=== PATIENT | female | born 1955 ===

== ENCOUNTER 2022-09-30 10:13 | Outpatient (CLI) | payer MEDICARE, SELFPAY | END 2022-09-30 10:14 | disposition home or self-care (01) | PROVIDERS: PCP Family Medicine; Visit Provider Family Medicine | DX: I10 Essential (primary) hypertension (principal); E78.00 Pure hypercholesterolemia, unspecified; R25.2 Cramp and spasm | CPT/HCPCS: 80061; 80076; 83735 ==

== ENCOUNTER 2022-12-09 13:21 | Outpatient (CLI) | payer MEDICARE, SELFPAY ==
[2022-12-09 14:45] VITALS: BP 173/96; PULSE 95
--- NOTE | 2022-12-09 14:58 | PN_ITS ---
INDICATIONS Shortness of breath. ? DETAILS OF PROCEDURE EKG shows sinus rhythm, 94 beats per minutes, flipped T-waves in V1 without ST changes. ? Resting blood pressure 178/107. ? STRESS TEST The patient was exercised following standard Dustin protocol with treadmill echo for imaging. ?She was able to exercise to 4 minutes, 14 seconds, having to stop due to significant shortness of breath. ?Note, the patient does have underlying COPD. ?This is equivalent to 6 METs of exercise. ?She had a maximum heart rate of 142 beats per minute which was 109% of a calculated target of 130. ?She had a maximum blood pressure of 196/78 with a rate pressure product of 23,970. ?There was no evidence of any ischemia, no arrhythmia. ?The patient recovered after exercise from her shortness of breath. ? ASSESSMENT Subjectively negative, objectively negative EKG for ischemia on this EKG portion. ? PLAN Await echo images to couple this for a full formal diagnostic. ?The patient was discharged in stable condition. ?She will await diagnostic report with the echo images from her ordering physician. ? Dictated Date: 12/09/2022 14:58:45 CDT Internal Job ID: [id number]
== END 2022-12-09 13:22 | disposition home or self-care (01) ==
LOC: STRESS 19:43
PROVIDERS: PCP Family Medicine; Visit Provider Family Medicine
DX: R06.02 Shortness of breath (principal)
CPT/HCPCS: 93016; 93325; 93351

== ENCOUNTER 2023-02-20 11:48 | Outpatient (CLI) | payer MEDICARE, SELFPAY | END 2023-02-20 11:49 | disposition home or self-care (01) | LOC: NFLDREF 02-25 06:32 | PROVIDERS: PCP Family Medicine; Referring Provider Family Medicine; Visit Provider Family Medicine | DX: Z00.00 Encounter for general adult medical examination without abnormal findings (principal); I10 Essential (primary) hypertension; M85.80 Other specified disorders of bone density and structure, unspecified site; L57.0 Actinic keratosis; Z72.0 Tobacco use; J43.9 Emphysema, unspecified | CPT/HCPCS: 82306 ==

== ENCOUNTER 2023-12-01 12:10 | Outpatient (CLI) | payer MEDICARE, SELFPAY ==
--- OUTSIDE RECORDS SUMMARY | 2023-12-01 12:18 | XMS_ITS | Encounter Summary ---
Author Organization [facility] Address [address] [place] [address] Care Team Providers Care Children'S Choir Director Name Role Phone Lisa Soto PA-C Primary Care Provid er Lisa Soto PA-C Unavailable + [phone] Encounter Details Date Type Department Care Team ([facility] Contact Info) Description 11/04/2022 MyC Medical Advice [facility] [address] [place] [address] [address] [place] [address] Azul Lomeli Social History Tobacco Use Types Packs/Day Years Used Date Smoking Tobacco: Every Day Cigarettes 0.5 49.7 Started: 03/15/1974 Smokeless Tobacco: Never Comments:cutting down, maybe 5 cigarettes daily Alcohol Use Standard Drinks/Week Comments Yes 0 (1 standard drink = 0.6 oz pur e alcohol) 3 drinks a week AUDIT-C Answer Date Recorded Q1: How often do you have a drink containing alc ohol? 2-3 times a week 11/23/2019 Q2: How many drinks containi ng alcohol do you have on a typical day when you are drinking? 3 or 4 11/23/2019 Frequency of Binge Drinking Not on file 10/31 PHQ-2 Answer Date Recorded PHQ-2 Score 0 10/11/2021 Sex and Gender Information Value Date Recorded Sex Assigned at Not on file Gender Identity Not on file Sexual Orientation Not on file documented as of this encounter Plan of Treatment Not on file documented as of this encounter Visit Diagnoses Not on filedocumented in this encounter Care Teams Children'S Choir Director Relationship Specialty Start Date End Date Lisa Soto PA-C [address] [place] [address] PCP - General Family Medicine 08/06/20 Lisa Soto PA-C [address] [place] [address] Assigned PCP 08/12/20 documented as of this encounter
--- OUTSIDE RECORDS SUMMARY | 2023-12-01 12:18 | XMS_ITS | Clinical Summary ---
Author Organization [facility] Address [address] [place] [address] Care Team Providers Care Supervisor [employer] Name Role Phone Lisa Soto PA-C Primary Care Provid er Lisa Soto PA-C Unavailable [phone] Allergies Active Allergy Reactions Criticality Noted Date Comments Azithromycin Hives 10/03/2010 Penicillins Hives,Swelling 10/03/2010 Swelling eyes Verapamil Swelling Low 12/03/2021 Medications Medication Sig Dispensed Refills Start Date End Date Status multivitamin, therapeutic with minerals (MULTI-VITAMIN) TABS Take 1 tablet by mouth daily Active triamcinolone (KENALOG) 0.025 % cream Place into both ears daily as needed for irritation (on the external ear) Active Naproxen Sodium (ALEVE PO) Take 440 mg by mouth daily as needed for moderate pain Active VERAPAMIL HCL POIndications:Vascul ar Headache Take 80 mg by mouth Active azelastine (ASTELIN) 0.1 % nasal spray USE 2 SPRAYS IN EACH NOSTRIL TWICE A DAY 08/30/2019 Active nicotine (NICORETTE) 2 MG gumIndications:Tobac co abuse Place 1 each (2 mg) inside cheek as needed for smoking cessation 100 tablet 1 11/23/2019 Active ibuprofen (ADVIL/MOTRIN) 200 MG tablet Take 2 tablets (400 mg) by mouth every 8 hours as needed for pain 60 tablet 07/31/2020 Active hydrocortisone, Perianal, (HYDROCORTISONE) 2.5 % creamIndications:Ext ernal hemorrhoids Place rectally 2 times daily as needed for hemorrhoids 30 g 1 08/31/2020 Active SUMAtriptan (IMITREX STATDOSE) 6 MG/0.5ML pen injector kit INJECT 6 MG NEEDED FOR CLUSTER FOR HEADACHE (NO MORE THAN 1 SHOT PER DAY) 09/26/2020 Active SUMAtriptan (IMITREX) 20 MG/ACT nasal spray INSTILL ONE SPRAY INTO ONE NOSTRIL AT ONSET OF HEADACHE MAY REPEAT IN 2 HOURS. MAX TRIPTAN 2 USES A DAY, 3 DAYS A WEEK 9 USES A MONTH 01/02/2021 Active ipratropium (ATROVENT) 0.06 % nasal spray INSTILL TWO SPRAYS INTO EACH NOSTRIL TWO TIMES A DAY 09/18/2021 Active rosuvastatin (CRESTOR) 20 MG tabletIndications:Mi xed hyperlipidemia Take 1 tablet (20 mg) by mouth daily 90 tablet 3 10/11/2021 Active budesonide (ENTOCORT EC) 3 MG EC capsuleIndications:M icroscopic colitis, unspecified microscopic colitis type Take 1 capsule (3 mg) by mouth every morning 90 capsule 10/11/2021 Active albuterol (PROAIR HFA/PROVENTIL HFA/VENTOLIN HFA) 108 (90 Base) MCG/ACT inhalerIndications:O bstructive emphysema (H) Inhale 1-2 puffs into the lungs every 6 hours as needed for shortness of breath / dyspnea or wheezing 8.5 g 3 10/11/2021 Active budesonide-formotero l (SYMBICORT) 80-4.5 MCG/ACT InhalerIndications:O bstructive emphysema (H) Inhale 2 puffs into the lungs 2 times daily 30 g 3 10/11/2021 Active ipratropium - albuterol 0.5 mg/2.5 mg/3 mL (DUONEB) 0.5-2.5 (3) MG/3ML neb solutionIndications: Obstructive emphysema (H) Take 1 vial (3 mLs) by nebulization every 6 hours as needed for shortness of breath / dyspnea or wheezing 75 mL 1 10/11/2021 Active valACYclovir (VALTREX) 1000 mg tabletIndications:He rpes zoster without complication Take 1 tablet (1,000 mg) by mouth 3 times daily for 7 days 21 tablet 10/17/2021 Active gabapentin (NEURONTIN) 100 MG capsuleIndications:H erpes zoster without complication Take 1-2 capsules (100-200 mg) by mouth 3 times daily as needed for neuropathic pain 30 capsule 10/17/2021 Active hydrochlorothiazide (HYDRODIURIL) 12.5 MG tabletIndications:Es sential hypertension, benign Take 1 tablet (12.5 mg) by mouth daily 30 tablet 1 12/12/2021 Active losartan (COZAAR) 100 MG tabletIndications:Es sential hypertension, benign Take 1 tablet (100 mg) by mouth daily 90 tablet 12/12/2021 Active metoprolol succinate ER (TOPROL XL) 50 MG 24 hr tabletIndications:Es sential hypertension, benign Take 1 tablet (50 mg) by mouth At Bedtime 90 tablet 12/12/2021 Active omeprazole (PRILOSEC) [address] capsuleIndications:G astroesophageal reflux disease with esophagitis without hemorrhage Take 1 capsule (20 mg) by mouth daily 90 capsule 1 05/12/2022 Active Active Problems Problem Noted Date Diagnosed Date Mixed hyperlipidemia 10/13/2021 Dermatitis 10/11/2016 Overview: Overview: To the ears Microscopic colitis 10/11/2016 Overview: Overview: She is on oral Entcort. Due colonoscopy 2019 Obstructive emphysema 10/11/2016 Overview: Overview: On steroid inhalers and albuterol. Patient continues to smoke Essential hypertension, benign 10/27/2014 RAD (reactive airway disease) 10/27/2014 Overview: Overview: Gets recurrent bronchitis and is treated with steroids. Chest pain 09/12/2014 Vulvar mass 10/20/2010 Episodic cluster headache 07/03/2010 Overview: Overview: Sees neurology. On verapamil. Has used high dose O2 Depression with anxiety 11/16/2009 ACP (advance care planning) 11/16/2009 Tobacco abuse 11/16/2009 Overview: Overview: Using the patch. Was 1 ppd. Now 06/04-1/2 ppd Resolved Problems Problem Noted Date Diagnosed Date Resolved Date Health Prison 11/23/2019 11/16/2023 Cystocele 03/15/2015 11/08/2020 Immunizations Name Administration Dates Next Due COVID-19 MONOVALENT 12+ (Pfizer) 10/01/2020,08/30 Pneumococcal 23 valent 03/20/2021,01/17/2020 TD,PF 7+ (Tenivac) 11/04/1996 TDAP Vaccine (Adacel) 11/25/2014 Family History Medical History Relation Comments Coronary Artery Disease Brother 1 stents Myocardial Infarction Brother 1 62 Prostate Cancer Father Alzheimer Disease Maternal Grandmother Diabetes Mother Lymphoma Mother Breast Cancer No family hx of Relation Status Comments Brother 1 Brother 2 Daughter 1 Alive Daughter 2 Alive Father Maternal Grandfather Maternal Grandmother Mother Paternal Grandfather Paternal Grandmother Social History Tobacco Use Types Packs/Day Years Used Date Smoking Tobacco: Every Day Cigarettes 0.5 49.7 Started: 03/15/1974 Smokeless Tobacco: Never Tobacco Cessation:Ready to Q uit: No; Counseling Given: Yes Comments:cutting down, maybe 5 cigarettes daily Alcohol [...] Answer Date Recorded PHQ-2 Score 0 10/11/2021 Adolescent Education Answer Date Record ed Getting School Help Needed Not on file 03/16 Sex and Gender Information Value Date Recorded Sex Assigned at Not on file Gender Identity Not on file Sexual Orientation Not on file Last Filed Vital Signs Vital Sign Reading Time Taken Comments Blood Pressure 122/84 12/12/2021 10:01 AM CDT Pulse 72 12/12/2021 10:01 AM CDT Temperature 36.2 ??C (97.2 ??F) 12/12/2021 10:01 AM C DT Respiratory Rate 18 10/19/2020 5:45 PM CDT Oxygen Saturation 98% 12/12/2021 10:01 AM CDT Inhaled Oxygen Concentration - - Weight 68.5 kg (151 lb) 12/12/2021 10:01 AM CDT Height 157.5 cm (5' 2) 12/12/2021 10:01 AM CDT Body Mass Index 27.62 12/12/2021 10:01 AM CDT Plan of Treatment Health Maintenance Due Date Last Done Comments ANNUAL REVIEW OF HM ORDERS 1955 COPD ACTION PLAN 1955 [address] COLONOGRAPHY 1955 FIT 1955 FLEX SIG 1955 SPIROMETRY 1955 sDNA (Cologuard) 1955 LUNG CANCER SCREENING 2005 ZOSTER IMMUNIZATION (1 of 2) 2005 RSV VACCINE ( & 60+) (1 - 1-dose 60+ series) 2015 MEDICARE ANNUAL WELLNESS VISIT 2020 COLONOSCOPY 12/31/2020 01/01/2016, 0807/2015, 10/23/2009 Pneumococcal Vaccine: 65+ Years (2 of 2 - PCV) 03/20/2022 03/20/2021, 01/17/2020 MAMMO SCREENING 06/05/2022 06/05/2020, 07/03, 04/08/2005 FALL RISK ASSESSMENT 10/11/2022 10/11/2021, 08/08/19 21 LIPID 10/11/2022 10/11/2021, 10/19/2020 COVID-19 Vaccine ( season) 2023 10/01/2020, 09/10/2020 PHQ-2 (once per calendar year) 2023 10/11/2021, 08/07/2020, 11/23/2019 INFLUENZA VACCINE (Season Ended) 2024 09/27/2021 (Declined), 08/07/2020 (Declined) DTAP/TDAP/TD IMMUNIZATION (2 - Td or Tdap) 11/25/2024 11/25/2014, 11/04/1996 GLUCOSE 12/12/2024 12/12/2021, 09/29, 10/19/2020, Additional history exists COLORECTAL CANCER SCREENING 07/03/2025 Postponed from 1955 (Not Able to Schedule At This Time) ADVANCE CARE PLANNING 11/08/2025 11/08/2020 , 08/07/2020, 11/16/2009 DEXA 01/22/2037 01/22/2022 HEPATITIS C SCREENING Discontinued HPV IMMUNIZATION Aged Out No longer e ligible based on patient's age to complete this topic IPV IMMUNIZATION Aged Out No longer e ligible based on patient's age to complete this topic MENINGITIS IMMUNIZATION Aged Out No l onger eligible based on patient's age to complete this topic RSV MONOCLONAL ANTIBODY Aged Out No l onger eligible based on patient's age to complete this topic Medical Devices Implanted Type Area Zumba Instructor Device Identifier Shelf Expiration Date Model / Serial / Lot Mesh Sling Artisyn Sacrocolpopexy Arty Implanted:Qty: 1 on 03/15/2015 by Manoj Tineo MD at [facility] N/A: Pelvis [employer]- 10/29/2016 [id number] / / [id number] Mesh [address] Hernia 3.1x4.7 Oval Sm [id number] Implanted:Qty: 1 on 02/08/2016 by Gagan Crystal MD at [facility] N/A: Abdomen [employer]-DAVOL 10/26/2017 [id number] / / [id number] Procedures Procedure Name Priority Date/Time Associated Diagnosis Comments DX BONE DENSITY Routine 01/22/2022 Screening for osteoporosis BASIC METABOLIC PANEL (BFP) Routine 12/12/2021 Essential hypertension, benign LIPID PANEL (BFP) Routine 10/11/2021 1:3 3 PM CDT Mixed hyperlipidemia MA SCREENING BILATERAL W/ BERNARD Routine 06/05/2020 COLONOSCOPY Routine 01/01/2016 7:07 AM CDT from Last 3 Months or Most Recently Relevant to Health Maintenance Results * Dexa hip/pelvis/spine* (01/22/2022) Anatomical Region Laterality Modality Dexa Other Narrative 01/22/[id number] [place] [address], [address] [place] [address] [place] : 1955 Req Phys: Lisa Soto PA-C Patient name: Clinic: [facility] SHEKHAR ORELLANA Isidra Dept No: [id number] BONE DENSITY Exam Date: 01/22/2022 EXAM: BONE DENSITY LOCATION: [facility] [place] DATE/TIME: 01/22/2022 8:26 AM INDICATION: Postmenopause screening for osteoporosis. COMPARISON: 04/16/2009 TECHNIQUE: Dual-energy x-ray absorptiometry performed with routine technique. FINDINGS: Lumbar Spine: L1-L4: BMD: 0.885 g/cm2. T-score: -1.5. Z-score: 0.4 RIGHT Hip Total: BMD: 0.696 g/cm2. T-score: -2.0. Z-score: -0.7 RIGHT Hip Femoral neck: BMD: 0.592 g/cm2. T-score: -2.3. Z-score: -0.7 LEFT Hip Total: BMD: 0.652 g/cm2. T-score: -2.4. Z-score: -1.1 LEFT Hip Femoral neck: BMD: 0.587 g/cm2. T-score: -2.4. Z-score: -0.8 WHO Criteria: Normal: T score at or above -1 SD Osteopenia: T score between -1 and -2.5 SD Osteoporosis: T score at or below -2.5 SD COMPARISON: There has been a 8.0 % decrease in left hip BMD. FRAX Results: 10 year probability of major osteoporotic fracture is 14%, and of hip fracture is 4.2%, based on left femoral neck BMD. RECOMMENDATIONS: Consider treatment if major osteoporotic fracture score is greater than or equal to 20%. Consider treatment if hip fracture score is greater than or equal to 3%. IMPRESSION: Low bone density (OSTEOPENIA). T score meets the World Health Organization (WHO) criteria for low bone density (osteopenia) at one or more measured sites. The risk of osteoporotic fracture increased approximately two-fold for each SD decrease in T-score. Dictated By: JESSICA CURIEL M.D. Password protected electronic signature by: STALIN Trans: [email or web address] Date Of Trans: 01/22/2022 2:20:00PM Date report approved and signed by interpreting physician: 01/22/2022 2:26:00PM Page 1 of 1 Lisa Soto PA-C IMG DEXA ORD ERABLES * (ABNORMAL) Basic Metabolic Panel (BFP) (12/12/2021) Carbon Dioxide 29.3 20 - 32 mmol/L BFP INTERNAL Creatinine 0.89 0.60 - 1.30 mg/dL BFP INTERNAL Glucose 135(A) 60 - 99 mg/dL BFP INTERNAL Sodium 136.2 135 - 146 mmol/L BFP INTERNAL Potassium 4.73 3.5 - 5.3 mmol/L BFP INTERNAL Chloride 101.0 98 - 110 mmol/L BFP INTERNAL Urea Nitrogen 12 7 - 25 mg/dL BFP INTERNAL Calcium 9.7 8.6 - 10.3 mg/dL BFP INTERNAL BUN/Creatinine Ratio 13.5 6 - 22 BFP INTERNAL Blood 12/12/2021 Lisa Soto PA-C LAB - NON-BE [facility] BFP INTERNAL * Lipid Panel (BFP) (10/11/2021 1:33 PM CDT) Cholesterol 180 0 - 199 mg/dL BFP INTERNAL Triglycerides 126 0 - 149 mg/dL B[facility] INTERNAL HDL Cholesterol 56 40 - 150 mg/dL BFP INTERNAL LDL Cholesterol Direct 99 0 - 130 mg/dL BFP INTERNAL Cholesterol/HDL Ratio 3 0 - 5 BFP INTERNAL Blood 10/11/2021 1:33 PM CDT Lisa Soto PA-C LAB - NON-BE [facility] BFP INTERNAL * MA Screen Bilateral w/Bernard (06/05/2020) MAMMOGRAM Anatomical Region Laterality Modality Breast Bilateral Other Narrative 06/05/2020 [facility] Phone: [phone] * Fax: [phone] [address] Age: 64 Y Dept No.: [id number] SHEKHAR ORELLANA : 1955 Chart # Gender: F Req. Phys: Caleb Tovar MD MD Clinic MRN: Clinic: [facility] Acc#: [id number] Exam: MAMMOGRAM SCREENING BERNARD BILATERAL Exam Date: 06/05/2020 EXAM: MAMMOGRAM SCREENING BERNARD BILATERAL LOCATION: [facility] DATE/TIME: 06/05/2020 9:54 AM INDICATION: Asymptomatic. Screening Mammogram. COMPARISON: 07/31/14, 04/29/12 BREAST DENSITY: Scattered areas of fibroglandular density. FINDINGS: Tomosynthesis craniocaudal and mediolateral oblique views were obtained. There is no evidence for spiculated masses, architectural distortion, asymmetry or suspicious calcifications. IMPRESSION: No evidence of malignancy. Recommend routine annual screening mammography. When performed, computer-aided detection was used in the interpretation of this study. ACR 1: Negative. A lay language report of this examination will be mailed to the patient. Performed by: MAREN Transcribed By: JOSE on: 06/05/2020 10:18 AM RODENT CONTROL WORKER Finalized By: NATHANIEL VILLAVICENCIO M.D. on: 06/05/2020 10:18 AM RODENT CONTROL WORKER Dictated By: NATHANIEL VILLAVICENCIO M.D. Signed by: SGT Page 1 of 1 Caleb Tovar MD IMG MAMMOGRAPHY OR DERABLES * COLONOSCOPY (01/01/2016 7:07 AM CDT) Pathologist [facility] COLONOSCOPY [facility] Patient Name: Shekhar Orellana ?Procedure Date: 01/01/2016 7:07 AM ? Date of : 1955 ?Admit Type: Outpatient Age: 60 ? Gender: Female Attending MD: Cristin Ibarra MD ? Instrument Name: 134 Procedure: ?Colonoscopy Indications: ?Screening for colorectal malignant neoplasm, ?Incidental - Chronic diarrhea Providers: ?Cristin Ibarra MD, Huma Whalen RN (Nurse) Referring MD: ? Caleb Tovar MD Medicines: ?Fentanyl 100 micrograms IV, Midazolam 3 mg IV, ?Glucagon 0.5 mg IV ?IT:17m, WDT: 17m Complications: ?No immediate complications. Procedure: ?Pre-Anesthesia Assessment: ?- Prior to the procedure, a History and Physical ?was performed, and patient medications and ?allergies were reviewed. The patient is competent. ?The risks and benefits of the procedure and the ?sedation options and risks were discussed with the ?patient. All questions were answered and informed ?consent was obtained. Patient identification and ?proposed procedure were verified by the physician ?and the nurse in the endoscopy suite. Mental Status ?Examination: alert and oriented. Airway ?Examination: normal oropharyngeal airway and neck ?mobility. Respiratory Examination: clear to ?auscultation. CV Examination: normal. Prophylactic ?Antibiotics: The patient does not require ?prophylactic antibiotics. Prior Anticoagulants: The ?patient has taken no previous anticoagulant or ?antiplatelet agents. ASA Grade Assessment: II - A ?patient with mild systemic disease. After reviewing ?the risks and benefits, the patient was deemed in ?satisfactory condition to undergo the procedure. ?The anesthesia plan was to use moderate sedation / ?analgesia (conscious sedation). Immediately prior ?to administration of medications, the patient was ?re-assessed for adequacy to receive sedatives. The ?heart rate, respiratory rate, oxygen saturations, ?blood pressure, adequacy of pulmonary ventilation, ?and response to care were monitored throughout the ?procedure. The physical status of the patient was ?re-assessed after the procedure. ?After obtaining informed consent, the colonoscope ?was passed under direct vision. Throughout the ?procedure, the patient's blood pressure, pulse, and ?oxygen saturations were monitored continuously. The ?[id number] was introduced through the anus and ?advanced to the cecum, identified by the ?appendiceal orifice, ileocecal valve and palpation. ?The colonoscopy was somewhat difficult due to a ?tortuous colon. Successful completion of the ?procedure was aided by increasing the dose of ?sedation medication and using manual pressure. The ?patient tolerated the procedure well. The quality ?of the bowel preparation was excellent. ? Findings: ? The perianal and digital rectal examinations were normal. Pertinent ? negatives include normal sphincter tone and no palpable rectal lesions. ? A sessile polyp was found in the cecum. The polyp was 2 mm in size. The ? polyp was removed with a cold biopsy forceps. Resection and retrieval ? were complete. Estimated blood loss was minimal. ? Normal mucosa was found in the entire colon. Biopsies were taken with a ? cold forceps from the right colon and left colon for evaluation of ? microscopic colitis. Estimated blood loss was minimal. ? The retroflexed view of the distal rectum and anal verge was normal and ? showed no anal or rectal abnormalities. ? The retroflexed view of the distal rectum and anal verge was normal and ? showed no anal or rectal abnormalities. ? Impression: ? - One 2 mm polyp in the cecum. Resected and ?retrieved. ?- Normal mucosa in the entire examined colon. ?Biopsied. ?- The distal rectum and anal verge are normal on ?retroflexion view. ?- The distal rectum and anal verge are normal on ?retroflexion view. Recommendation: ? - Use fiber, for example Citrucel, Fibercon, Konsyl ?or Metamucil. ?- Await pathology results. ?- Repeat colonoscopy in 5-10 years for surveillance ?based on pathology results. ? Procedure Code(s): ? --- Professional --- ? 59998, Colonoscopy, flexible, proximal to splenic flexure; with biopsy, ? single or multiple Diagnosis Code(s): ? --- Professional --- ? D12.0, Benign neoplasm of cecum ? Z12.11, Encounter for screening for malignant neoplasm of colon CPT copyright 2013 [employer]. All rights reserved. The codes documented in this report are preliminary and upon senior materials planner review may be revised to meet current compliance requirements. Cristin Ibarra MD 01/01/2016 8:31 AM Number of Addenda: 0 Note Initiated On: 01/01/2016 7:07 AM MRN: ?[id number] Procedure Date: ? 01/01/2016 7:07:47 AM Scope Withdrawal Time: 0 hours 12 minutes 25 seconds Total Procedure Duration: 0 hours 28 minutes 54 seconds Estimated Blood Loss: ? Scope In: 7:42:37 AM Scope Out: 8:11:31 AM RADIOLOGY RESULTS 01/01/2016 7:07 AM CDT Caleb Tovar MD PROCEDURES RADIOLOGY RESULTS from Last 3 Months or Most Recently Relevant to Health Maintenance Advance Directives For more information, please contact: [phone] * Full Code (Latest Code Status on File) Date Activated Date Inactivated Comments 03/15/2015 4:21 PM 03/16/2015 12:38 PM * Full Code Date Activated Date Inactivated Comments 09/12/2014 1:57 AM 09/12/2014 1:45 PM Care Teams Supervisor [employer] Relationship Specialty Start Date End Date Lisa Soto PA-C [address] [place] [address] PCP - General Family Medicine 08/06/20 Lisa Soto PA-C [address], [facility] [address] [place] [address] Assigned PCP 08/12/20
--- OUTSIDE RECORDS SUMMARY | 2023-12-01 12:18 | XMS_ITS | Referral Summary ---
Author Organization [facility] Address [address] [place] [address] Care Team Providers Care Core Setter Name Role Phone Lisa Soto PA-C Primary Care Provid er Lisa Soto PA-C Unavailable +1- [phone] Allergies Active Allergy Reactions Criticality Noted Date [...] 7+ (Tenivac) 11/04/1996 TDAP Vaccine (Adacel) 11/25/2014 Social History Tobacco Use Types Packs/Day Years [...] 12/12/2021 10:01 AM CDT Plan of Treatment Not on file Medical Devices Implanted Type Area Varnishing Machine Operator Device Identifier Shelf Expiration Date Model / Serial / Lot Mesh Sling Artisyn Sacrocolpopexy Arty Implanted:Qty: 1 on 03/15/2015 by Manoj Tineo MD at [facility] N/A: Pelvis [employer]- 10/29/2016 [id number] / / [id number] Mesh [address] Hernia 3.1x4.7 Oval Sm [id number] Implanted:Qty: 1 on 02/08/2016 by Gagan Crystal MD at [facility] N/A: Abdomen [employer]-DAVOL 10/26/2017 [id number] / / [id number] Procedures Procedure Name Priority Date/Time Associated Diagnosis [...] Region Laterality Modality Dexa Other Narrative 01/22/[address] [place] [address], [address] [place] [address] [place] : 1955 Req Phys: Lisa Soto PA-C Patient name: Clinic: [facility] SHEKHAR ORELLANA Dept No: [id number] BONE DENSITY Exam Date: 01/22/2022 EXAM: BONE DENSITY LOCATION: [facility] [place] DATE/TIME: 01/22/2022 8:26 AM INDICATION: Postmenopause screening [...] Password protected electronic signature by: STALIN Trans: SMK Date Of Trans: 01/22/2022 2:20:00PM Date report [...] CDT Lisa Soto PA-C LAB - NON-BE [facility] BLOOD LABS Performing Organization Address City/[facility]/ZIP Co de Phone Number BFP INTERNAL * MA Screen Bilateral w/Bernard (06/05/2020) MAMMOGRAM Anatomical Region Laterality Modality Breast Bilateral Other Narrative 06/05/2020 [facility] Phone: [phone] * Fax: [phone] [address] [place] [address] Age: 64 Y Dept No.: [id number] SHEKHAR ORELLANA : 1955 Chart # Gender: F Req. Phys: Caleb Tovar MD MD Clinic MRN: Clinic: [facility] Acc#: [id number] Exam: MAMMOGRAM SCREENING BERNARD BILATERAL Exam Date: 06/05/2020 EXAM: MAMMOGRAM SCREENING BERNARD BILATERAL LOCATION: [facility] DATE/TIME: 06/05/2020 9:54 AM INDICATION: [...] Transcribed By: JOSE on: 06/05/2020 10:18 AM AUTHORIZER Finalized By: NATHANIEL VILLAVICENCIO M.D. on: 06/05/2020 10:18 AM AUTHORIZER Dictated By: NATHANIEL VILLAVICENCIO M.D. Signed by: SGCordell Page 1 of 1 Caleb Tovar MD IMG MAMMOGRAPHY OR DERABLES * COLONOSCOPY (01/01/2016 7:07 AM CDT) COLONOSCOPY [facility] Patient Name: Shekhar Orellana ?Procedure Date: 01/01/2016 [...] and ?oxygen saturations were monitored continuously. The ?[id number] was introduced through the anus and ?advanced [...] Procedure Code(s): ? --- Professional --- ? 97241, Colonoscopy, flexible, proximal to splenic flexure; with biopsy, ? single or multiple Diagnosis Code(s): ? --- Professional --- ? D12.0, Benign neoplasm of cecum ? Z12.11, Encounter for screening for malignant neoplasm of colon CPT copyright 2013 [employer]. All rights reserved. The codes documented in this report are preliminary and upon operational communication chief review may be revised to meet current compliance requirements. Cristin Ibarra MD 01/01/2016 8:31 AM Number of Addenda: 0 Note Initiated On: 01/01/2016 7:07 AM MRN: ?[id number] Procedure Date: ? 01/01/2016 7:07:47 AM Scope [...] Advance Directives For more information, please contact: [phone] * Full Code (Latest Code Status on File) Date Activated Date Inactivated Comments 03/15/2015 4:21 PM 03/16/2015 12:38 PM * Full Code Date Activated Date Inactivated Comments 09/12/2014 1:57 AM 09/12/2014 1:45 PM Care Teams Core Setter Relationship Specialty Start Date End Date Lisa Soto PA-C [address], [address] [place] [address] PCP - General Family Medicine 08/06/20 Lisa Soto PA-C [address], [address] [place] [address] Assigned PCP 08/12/20
--- OUTSIDE RECORDS SUMMARY | 2023-12-01 12:18 | XMS_ITS | Encounter Summary ---
Author Organization [facility] Address [address] [place] [address] Care Team Providers Care Batch Tank Controller Name Role Phone Lisa Soto PA-C Primary Care Provid er Lisa Soto PA-C Unavailable [phone]- [phone] Encounter Details Date Type Department Care Team (Late Contact Info) Description 10/19/2020 Documentation Only [facility] Emergency Dept [address] [place] [address] Unknown, Provider Social History Tobacco Use Types Packs/Day Years Used Date Smoking Tobacco: Every Day Cigarettes 0.5 49.7 Started: 03/15/1974 Smokeless Tobacco: Never Alcohol Use Standard Drinks/Week Comments Yes 0 [...] PHQ-2 Answer Date Recorded PHQ-2 Score 0 11/23/2019 Sex and Gender Information Value Date Recorded Sex Assigned at Not on file Gender Identity Not on file Sexual Orientation Not on file COVID-19 Exposure Response Date Recorded In the last month, have you been in contact with someone who was confirmed or suspected to have Coronavirus / COVID-19? No / Unsure 10/19/2020 9:37 AM CDT documented as of this encounter Plan of Treatment Not on file documented as of this encounter Visit Diagnoses Not on filedocumented in this encounter Care Teams Batch Tank Controller Relationship Specialty Start Date End Date Lisa Soot PA-C [address], [address] [address] PCP - General Family Medicine 08/06/20 Lisa Soto PA-C [address], [address] [address] Assigned PCP 08/12/20 documented as of this encounter
--- OUTSIDE RECORDS SUMMARY | 2023-12-01 12:18 | XMS_ITS | Encounter Summary ---
Author Organization [facility] Address [address] [place] [address] Care Team Providers Care Freight Associate Name Role Phone Caleb Tovar MD Primary Care Provider Romelia vailaCaleb Downing MD Unavailable Unavailab le Lisa Soto PA-C Primary Care Provid er Lisa Soto PA-C Unavailable +- [phone] Encounter Details Date Type Department Care Team (Late st Contact Info) Description 03/21/2020 Orders Only [facility] [address] [address] [place] [address] Johanna Velásquez MA Supraclavicular lymphadenopathy Social History Tobacco Use Types Packs/Day Years Used Date Smoking Tobacco: Every Day Cigarettes 1 49.7 Started: 03/15/1974 Smokeless Tobacco: Never Alcohol [...] have Coronavirus / COVID-19? No / Unsure 03/14/2020 8:52 AM CDT documented as of this encounter Plan of Treatment Not on file documented as of this encounter Procedures Procedure Name Priority Date/Time Associated Diagnosis Comments US HEAD NECK SOFT TISSUE Routine 03/21/2020 Supraclavicular lymphadenopathy documented in this encounter Results * US Head Neck Soft Tissue (03/21/2020) Anatomical Region Laterality Modality Head Other Narrative 03/21/2020 [facility] Phone: [phone] * Fax: [phone] [address] [place] [address] Age: 64 Y Dept No.: [id number] ALINA ORELLANA : 1955 Chart # Gender: F Req. Phys: Caleb Tovar MD MD Clinic MRN: Clinic: [facility] Acc#: [id number] Exam: US NECK SOFT TISSUE Exam Date: 03/21/2020 EXAM: US NECK SOFT TISSUE [place] [facility] [place]TIME: 03/21/2020 9:28 AM INDICATION: Left supraclavicular fullness COMPARISON: None. Findings: Targeted ultrasound of the left supraclavicular region and comparison images of the right supraclavicular region were obtained. Underlying the area of fullness, there are no masses or enlarged lymph nodes. No asymmetric soft tissue thickening. Impression: No left supraclavicular mass or lymphadenopathy. No findings to account for fullness in the left supraclavicular region. Performed by: ONESIMO Transcribed By: JOSE on: 03/21/2020 9:42 AM CDT Finalized By: MARIELY MENCHACA M.D. on: 03/21/2020 9:42 AM CDT Dictated By: MARIELY MENCHACA M.D. Signed by: Page 1 of 1 Caleb Tovar MD IMG US ORDERABLES documented in this encounter Visit Diagnoses Diagnosis Supraclavicular lymphadenopathy Enlargement of lymph nodes documented in this encounter Care Teams Freight Associate Relationship Specialty Start Date End Date Caleb Tovar MD PCP - General Family Practice 02/16/14 08/05/20 Lisa Soto PA-C [address] , [address] [address] PCP - General Family Medicine 08/06/20 Caleb Tovar MD I[place] IN [place] 09/28/2020 Assigned PCP 11/04/19 Lisa Soto PA-C [address] [address] Assigned PCP 08/12/20 documented as of this encounter
--- OUTSIDE RECORDS SUMMARY | 2023-12-01 12:18 | XMS_ITS | Encounter Summary ---
Author Organization [facility] Address [address] [place] [address] Care Team Providers Care Worksite Wellness Practitioner Name Role Phone Lisa Soto PA-C Primary Care Provid er Lisa Soto PA-C Unavailable + [phone] Encounter Details Date Type Department Care Team ([facility] Contact Info) Description 07/18/2021 MyC Medical Advice [facility] [address] [place] [address] [address] [place] [address] Catarina Davis CMA Social History Tobacco Use Types Packs/Day Years [...] on filedocumented in this encounter Care Teams Worksite Wellness Practitioner Relationship Specialty Start Date End Date Lisa Soto PA-C [address], [address] [place] [address] PCP - General Family Medicine 08/06/20 Lisa Soto PA-C [address], [address] [place] [address] Assigned PCP 08/12/20 documented as of this encounter
--- OUTSIDE RECORDS SUMMARY | 2023-12-01 12:19 | XMS_ITS | Clinical Summary ---
Author Organization [facility] Address [place], [place] [address] Care Team Providers Care Silver Cleaner Name Role Phone Isha Bueno MD Primary Care Provider + Allergies Active Allergy Reactions Criticality Noted Date Comments Erythromycin 11/09/2009 Penicillins *Unknown 11/09/2009 25 years ago, thinks can tolerate now Medications Medication Sig Dispensed Refills Start Date End Date Status multivitamin (MVI) tablet Take 1 tablet by mouth once daily. Active Fiber Cap Take by mouth. Active verapamil (CALAN) 80 mg tablet Take 80 mg by mouth. 3 11/09/2015 Active PROCTOSOL HC 2.5 % rectal creamIndications:He morrhoids, unspecified hemorrhoid type APPLY TOPICALLY TO AFFECTED AREA(S) 3 TIMES DAILY. 1 Tube 2 03/24/2016 Active nicotine 14 mg/24 hr (NICODERM; HABITROL) 14 mg/24 hr patchIndications:To bacco abuse Apply 1 Patch on dry, clean, hairless skin once daily. 28 Patch 08/20/2016 Active metoprolol succinate (TOPROL XL) 50 mg sustained-release tabletIndications:E ssential hypertension TAKE 1 and 1/2 TABLET BY MOUTH ONCE DAILY 135 tablet 2 08/20/2016 Active budesonide (ENTOCORT EC) 3 mg capsuleIndications: Microscopic colitis, unspecified microscopic colitis type Take 1 capsule by mouth every day 90 capsule 1 10/08/2016 Active fluocinolone 0.01% TOPICAL (SYNALAR) 0.01 % external solutionIndications :Dermatitis of ear canal, bilateral Apply topically to affected area(s) 2 times daily. 1 Bottle 10/08/2016 Active albuterol HFA (VENTOLIN HFA) 90 mcg/actuation inhalerIndications: Obstructive emphysema (HC) Inhale 1-2 Puffs by mouth every 4 hours while awake. 1 Inhaler 11 10/08/2016 Active SYMBICORT 80-4.5 mcg/actuation (80-4.5 mcg each actuation) inhalerIndications: Obstructive emphysema (HC) INHALE 2 PUFFS BY MOUTH 2 TIMES DAILY. 10.2 Inhaler 03/20/2017 Active predniSONE (DELTASONE) 20 mg tablet Take 2 tablets by mouth once daily for 5 days then take 1 tablet daily for 5 days. 20 tablet 04/22/2017 Active azithromycin (ZITHROMAX) 500 mg tablet Take 1 tablet by mouth once daily. 7 tablet 04/22/2017 Active nystatin (MYCOSTATIN) 100,000 unit/mL suspension Swab 1 mL in each cheek 4 times daily for 7 to 10 days until gone. 100 mL 04/22/2017 Active codeine-guaiFENesin (CHERATUSSIN AC) 10-100 mg/5 mL liquid Take 5-10 mL by mouth every 6 hours if needed for cough. 120 mL 04/22/2017 Active losartan (COZAAR) 100 mg tabletIndications:E ssential hypertension TAKE 1 TABLET BY MOUTH ONCE DAILY. 30 tablet 11/02/2017 Active ranitidine (ZANTAC) 150 mg tabletIndications:C hronic GERD TAKE 1 TABLET BY MOUTH 2 TIMES DAILY. 180 tablet 12/16/2017 Active codeine-guaiFENesin (ROBITUSSIN AC) 10-100 mg/5 mL liquidIndications:P neumonia of both lower lobes due to infectious organism Take 10 mL by mouth every 4 hours if needed for Cough. Max dose 60 mL per 24 hrs. 120 mL 08/21/2018 Active albuterol HFA 90 mcg/actuation inhalerIndications: Pneumonia of both lower lobes due to infectious organism Inhale 1-2 Puffs by mouth every 4 hours if needed. 1 Inhaler 08/21/2018 Active albuterol-ipratropi um (DUONEB) (2.5-0.5 mg) in 3 mL NEBULIZATION solutionIndications :Pneumonia of both lower lobes due to infectious organism Inhale 3 mL via a nebulizer every 6 hours if needed. 120 Vial 08/21/2018 Active NebulizerIndication s:Pneumonia of both lower lobes due to infectious organism Nebulizer, disposable neb kit x 4, reuseable neb kit x 1, mask x 1, filters x 1. Frequency of use: daily; Medication: duoneb Length of need 99 months 1 Device 08/21/2018 Active Proctozone-HC 2.5 % rectal creamIndications:He morrhoids, external APPLY TOPICALLY TO AFFECTED AREA THREE TIMES A DAY 28 g 2 08/30/2020 Active Active Problems Problem Noted Date Diagnosed Date Hypoxia 08/21/2018 Dermatitis 10/11/2016 Overview: To the ears Microscopic colitis 10/11/2016 Overview: She is on oral Entcort. Due colonoscopy 2019 Obstructive emphysema 10/11/2016 Overview: On steroid inhalers and albuterol. Patient continues to smoke HTN (hypertension) 10/27/2014 RAD (reactive airway disease) 10/27/2014 Overview: Gets recurrent bronchitis and is treated with steroids. Episodic cluster headache 07/03/2010 Overview: Sees neurology. On verapamil. Has used high dose O2 Tobacco abuse 11/16/2009 Overview: Using the patch. Was 1 ppd. Now 06/04-1/2 ppd Depression with anxiety 11/16/2009 Routine health maintenance 11/16/2009 Immunizations Name Administration Dates Next Due Td (Age >=7 Years) 11/04/1996 Tdap 07/30/2014 Family History Medical History Relation Name Comments Heart Disease Brother [place] @ 57 Cancer-colon Father Cancer-prostate Father Diabetes Maternal Grandfather Diabetes Maternal Grandmother Cancer Mother lymphoma Diabetes Mother Hypertension Mother Cancer-breast No Family History Cancer-ovarian No Family History Relation Name Status Comments Brother Father Maternal Grandfather Maternal Grandmother Mother Social History Tobacco Use Types Packs/Day Years Used Date Smoking Tobacco: Every Day Cigarettes Smokeless Tobacco: Never Tobacco Cessation:Ready to Q uit: Yes; Counseling Given: Yes Comments:working on quitting Alcohol Use Standard Drinks/Week Comments Yes 7 (1 standard drink = 0.6 oz pur e alcohol) Occ. Sex and Gender Information Value Date Recorded Sex Assigned at Not on file Gender Identity Not on file Sexual Orientation Not on file Obstetrics History Last Filed Vital Signs Vital Sign Reading Time Taken Comments Blood Pressure 128/78 08/21/2018 1:28 PM CDT Pulse 122 08/21/2018 1:28 PM CDT Temperature 37.8 ??C (100 ??F) 08/21/2018 1: 28 PM CDT Respiratory Rate 16 08/21/2018 1:28 PM CDT Oxygen Saturation 93% 08/21/2018 1:2 8 PM CDT patient is smoker Inhaled Oxygen Concentration - - Weight 57.2 kg (126 lb) 10/08/2016 9:37 AM CDT Height 163 cm (5' 4.17) 08/20/2016 9:3 9 AM CDT Body Mass Index 21.51 08/20/2016 9:39 AM CDT Plan of Treatment Health Maintenance Due Date Last Done Comments Hepatitis C screening for ag e 18-79 1973 Zoster (shingles) series for age 50+ (1 of 2) 2005 Mammogram for age 45-75 08/01/2015 08/01/19 15, 04/29/2012, 04/16/2009, Additional history exists Depression screening for age 12+ 11/20/2016 11/21/19 16 BMI (ht and wt on same day) for age 18+ 08/20/2017 08/20/2016, 02/12/2016, 01/30/2016, Additional history exists DEXA/DXA scan for age 65+ 2020 Pneumococcal series for age 65+ (1 of 1 - PCV) 2020 Lipids for age 45-75 10/08/2021 10/08/2016, 11/21/2015, 05/14/2010, Additional history exists COVID-19 vaccine series (2022- season) 2023 10/01/2020, 09/10/2020 Influenza for age 65+ 01/31/2024 Tetanus booster 07/30/2024 07/30/2014, 05/01 (Declined), 11/04/1996 Colonoscopy through age 75 12/31/2025 01/01/2016, Tdap Completed 07/30/2014 Procedures Procedure Name Priority Date/Time Associated Diagnosis Comments LIPID PANEL W REFLEX MEASURED LDL Routine 10/08/2016 10:25 AM CDT Essential hypertension COLONOSCOPY SCREENING Routine 01/01/2016 12:00 AM CDT Routine adult health maintenance XR MAMMO BILAT SCREEN FFDM (IA) Routine 07/31/2014 9:14 AM CLIENT STRATEGIST Other screening mammogram from Last 3 Months or Most Recently Relevant to Health Maintenance Results * (ABNORMAL) LIPID PANEL W REFLEX MEASURED LDL (10/08/2016 10:25 AM CDT) CHOLESTEROL,TOTAL 238(H) 100 - 199 mg/dL 10/08/2016 7:50 PM CDT [facility] TRIGLYCERIDES 102 <150 mg/dL 10/08/2016 7:50 PM CDT [facility] HDL CHOLESTEROL 58 >40 mg/dL 7 7:50 PM CDT [facility] NON-HDL CHOLESTEROL 180(H) <145 mg/dl 10/08/2016 7:50 PM CDT [facility] CHOL/HDL RATIO 4.10 <4.50 10/08/2016 7:50 PM CDT [facility] LDL CHOLESTEROL 160(H) <=130 mg/dL 10/08/2016 7:50 PM CDT [facility] PATIENT STATUS FASTING 10/08/2016 7:50 PM CDT [facility] Blood BLOOD SPECIMEN / Unknown Venipuncture / Unknown 10/08/2016 10:25 AM CDT 10/08/2016 10:25 AM CDT Isha Bueno MD [facility] [address] [place] [address], * COLONOSCOPY SCREENING (01/01/2016 12:00 AM CDT) Caleb Tovar MD GI PROCEDURE ORD * XR MAMMO BILAT SCREEN FFDM (07/31/2014 9:14 AM CLIENT STRATEGIST) Anatomical Region Laterality Modality BREASTS, Breast Left, Breast Right Bilateral Mammography Impressions 07/31/2014 11:03 AM CLIENT STRATEGIST ??There is no radiographic evidence for malignancy. ??Recommend annual mammograms. A lay language report of this examination will be provided to the patient. MAMMOGRAM ASSESSMENT: ??ACR 1 Negative Narrative 07/31/2014 11:03 AM CLIENT STRATEGIST XR MAMMO BILAT SCREEN FFDM [G0202.0] CLINICAL HISTORY: ??This is an asymptomatic 59 y.o. patient. INDICATION FOR EXAM: Mammogram Screening. TECHNIQUE: CC & MLO views were obtained. ??This digital study was evaluated with the assistance of Computer-Aided Detection. ?? COMPARISON FILM: Yes 04/29/12 [facility] FINDINGS: ??Mammographically, the breast tissue has scattered fibroglandular densities. ??There are no dominant masses, suspicious micro calcifications or areas of architectural distortion. Procedure Note Isaac Ramos MD - 07/31/2014 XR MAMMO BILAT SCREEN FFDM [G0202.0] CLINICAL HISTORY: This is an asymptomatic 59 y.o. patient. INDICATION FOR EXAM: Mammogram Screening. TECHNIQUE: CC & MLO views were obtained. This digital study was evaluatedwith the assistance of Computer-Aided Detection. COMPARISON FILM: Yes 04/29/12 [facility] FINDINGS: Mammographically, the breast tissue has scatteredfibroglandular densities. There are no dominant masses, suspicious microcalcifications or areas of architectural distortion. IMPRESSION: There is no radiographic evidence for malignancy. Recommendannual mammograms. A lay language report of this examination will be provided to the patient. MAMMOGRAM ASSESSMENT: ACR 1 Negative Caleb Tovar MD MAMMO from Last 3 Months or Most Recently Relevant to Health Maintenance Care Teams Silver Cleaner Relationship Specialty [place] [address] [place] [address] PCP - General Family Practice 04/27/23
--- OUTSIDE RECORDS SUMMARY | 2023-12-01 12:19 | XMS_ITS | Continuity of Care Document ---
Author Organization [facility] Address [address] [place] [address] Phone Care Team Providers Care Ocean Lifeguard Specialist Name Role Phone Roxi MARQUEZ, Chris Unavailable Unavailable Allergies, Adverse Reactions, Alerts Substance Reaction Status Criticality Penicillins Swelling eyes, rash, itching(severe) Acti ve No Information Medications Medication Instructions Dosage Effective Dates (start - stop) Status Comments nabumetone 750 mg tablet take 1 tablet (750MG) by oral route every day 750 MG - Active losartan 100 mg tablet take 1 tablet (100MG) by oral route every day 100 MG - Active metoprolol succinate ER 50 mg tablet,extended release 24 hr take 1 tablet (50MG) by oral route every day 50 MG - Active oxycodone-acetaminop hen 5 mg-325 mg tablet take 1 tablet by oral route every day as needed 1 tablet - Active Procedures Procedure Date Office/Outpatient Visit, New Routine Venipuncture Specimen Handling Rbc Sed Rate, Nonautomated CReactive Protein Results Test Name Date and Time Measure Units Reference Range Abnormal Flag Status Comments Panel Description: ESR Final ESR 13:38:00 3 mm/hr 0-25 Final Panel Description: CRP Final CRP 14:12:00 0.01 MG/DL 0.00-0.60 Final Panel Description: ESR Final ESR 13:38:00 3 mm/hr 0-25 Final Panel Description: CRP Final CRP 14:12:00 0.01 MG/DL 0.00-0.60 Final Panel Description: Sjogren's Ab, Anti-SS-A/-SS-B Final Sjogren's Anti-SS-A 14 00:06:00 <0.2 AI 0.0-0.9 Final Sjogren's Anti-SS-B 14 00:06:00 <0.2 AI 0.0-0.9 Final Panel Description: CHARLIE Dir+CHARLIE IFA Final CHARLIE Direct 14 00:06:00 Negative Negative Final Antinuclear Antibodies, IFA 14 00:06:00 Negative Final Negative <1:80 Borderline 1:80 Positive >1:80 Panel Description: Rheumatoid Arthritis Factor Final RA Latex Turbid. 14 00:06:00 9.6 IU/mL 0.0-13.9 Final Panel Description: CCP Antibodies IgG/IgA Final CCP Antibodies IgG/IgA 14 00:06:00 5 units 0-19 Final Negative <20 Weak positive 20 - 39 Moderate positive 40 - 59 Strong positive >59 Advance Directives Directive Yes / No Effective Date File Name Resuscitation Not Answered N/A N/A Life Support Not Answered N/A N/A Intubation Not Answered N/A N/A Antibiotics Not Answered N/A N/A IV Fluid Support Not Answered N/A N/A Tube Feed Not Answered N/A N/A Other Directive N/A N/A WARNING:The information contained in this section is historical and is provided for information only and does not constitute a legal document or any assurance that the information is still accurate. Please verify the information with the marshall of the legal document before using it for clinical purposes. Encounters Encounter Description Practice Location Reason(s) For Visit Diagnoses Date Provider Providers Copied on Encounter Office/Outpa tient Visit, [facility], [address], [place], [address], tel:[phone] [facility] , Joint Pain (chief complaint) Hypertension , BenignPain in joint involving multiple sitesSicca syndrome Apr-1 6-201 4 Roxi Perez. [facility] [address], [place], [address], [place]. tel:[phone] Referring Provider: Chris Miner, [facility] [address], [place], [address]. tel:[phone] [facility], [address], [place], [address], [place] tel:[phone] [facility] , No Information 3-201 4 Roxi Perez. [facility] [address], [place], [address], [place]. tel:[phone] Family History Family Member Type Diagnosis Age At Onset No Information Payers Payer name Insurance type Covered constitution party ID Authormariana floyd(s) [employer] CI [id number] Social History Type Description Quantity Date Captured Comments Alcohol Use Details beer 4 beers weekly Caffeine Use Details Unknown Tobacco Use Status No Information Smoking Status Current every day smoker Smoking Tobacco Use Details Cigarette: No Details Available Cigarette: 20 Packs per day Sex Female Vital Signs Date / Time: Height Weight BMI Pulse Rate Blood Pressure Temperature Respiratory Rate Body Surface Area Head Circumference Head Circ. Percentile Wt./Kai. Percentile BMI percentile Pulse Ox Inhaled Ox 11:50 AM 63.00 in 130.00 lbs 23.0 3 kg/m eter (2) 122/70 mm[Hg] 97.40 F Chief Complaint And Reason For Visit From encounter dated '09/14/2013 12:00'. Joint Pain (chief complaint) Reason For Referral Reason For Referral No Information History Of Present Illness Encounter Date Complaint History Of Prese nt Illness No Information Functional Status Date Functional Assessmen t No Information Instructions Date Instruction Additional Infor mation No Information Assessments Type Assessment Date No Information Mental Status Date Cognitive Assessment Orientation - Addison ed to time, place, person, situation. Patient Care Teams Name Effective Dates (start - stop) Status Members No Information
--- OUTSIDE RECORDS SUMMARY | 2023-12-01 12:19 | XMS_ITS | Continuity of Care Document ---
Author Organization [facility] Address [address] [address] [place] [address] Phone Care Team Providers Care Security Control Center Operator Name Role Phone No Information Unavailable Unavailable Allergies, Adverse Reactions, Alerts Substance Reaction Status Criticality Penicillins Swelling Active No Information Medications Medication Instructions Dosage Effective Dates (start - stop) Status Comments budesonide DR - ER 3 mg capsule,delayed,ex tended release take 6mg daily x2 weeks then 3mg daily x 2weeks - Active Take 6mg daily x2 weeks then 3mg daily x2 weeks then if still diarrhea take 3mg every other day and schedule visit losartan 100 mg tablet take 1 tablet by oral route every day 100 MG - Active metoprolol succinate ER 50 mg tablet,extended release 24 hr take 1 tablet by oral route every day 50 MG - Active Procedures Procedure Date Offic/outpt E&m [facility] 6 Advance Directives Directive Yes / No Effective Date File Name No Information Encounters Encounter Description Practice Location Reason(s) For Visit Diagnoses Date Provider Providers Copied on Encounter [facility], [address] [address], [place], [id number], [place] tel:[phone] No Information 1 No Information [facility], [address] [address], [place], [id number], [place] tel:[phone] [facility] No Information 7 Jo Ann Molina. [address] [facility], [place], [place], [id number], [place]. tel:[phone] Offic/outpt E&m [facility], [address] [address], [place], [place], [id number], [place] tel:[phone] [facility] GI Symptoms or Concerns (chief complaint) Collagenous colitisElevated blood-pressure reading, w/o diagnosis of htn 201 6 ABYjudishalamirela RUFUS Tracy. [address] [facility], [facility] [address], [place], [place], [id number], [place]. tel:[phone] Family History Family Member Type Diagnosis Age At Onset Brother Problem (finding) Alive and well Mother Problem (finding) Daughter Problem (finding) Alive and well Father Problem (finding) Payers Payer name Insurance type Covered alliance party ID Authoriza tion(s) No Information Social History Type Description Quantity Date Captured Comments Sex Female Smoking Status No Information Chief Complaint And Reason For Visit No Information Reason For Referral Reason For Referral No Information History Of Present Illness Encounter Date Complaint History Of Prese nt Illness GI Symptoms or Concerns Alina koch is a pleasant 60-year-old female with a medical history of hypertension, who was recently diagnosed with microscopic colitis presenting for followup.Patient underwent a screening colonoscopy in early December 2015, with the Colorectal Surgery team. Dr. Ibarra performed the procedure. The patient was mentioning symptoms of chronic diarrhea upwards of eight to ten years of having loose watery stool. Random colon biopsies were obtained given her history. These revealed collagenous colitis. There was one cecal polyp removed, found to be a tubular adenoma. Once her pathology result in, she was started on a course of budesonide. The patient has been on 9 mg of budesonide for almost six weeks. She reports that her bowel habits have significantly improved. She is now having one formed bowel movement each day. In the past, she could have anywhere from three to ten bowel movements. She denies any abdominal pain, fever, chills, melena, or hematochezia. She is eating and dr Functional Status Date Functional Assessmen t No Information Instructions Date Instruction Additional Infor mation No Information Assessments Type Assessment Date No Information Patient Care Teams Name Effective Dates (start - stop) Status Members No Information
== END 2023-12-01 12:11 | disposition home or self-care (01) ==
PROVIDERS: PCP Family Medicine; Visit Provider Family Medicine
DX: E78.00 Pure hypercholesterolemia, unspecified (principal); I10 Essential (primary) hypertension; R79.89 Other specified abnormal findings of blood chemistry; R25.2 Cramp and spasm; J44.1 Chronic obstructive pulmonary disease with (acute) exacerbation
CPT/HCPCS: 80053; 80061; 84443

== ENCOUNTER 2024-03-29 10:28 | Outpatient (CLI) | payer MEDICARE, SELFPAY | END 2024-03-29 10:29 | disposition home or self-care (01) | PROVIDERS: PCP Family Medicine; Visit Provider Family Medicine | DX: E78.00 Pure hypercholesterolemia, unspecified (principal); I10 Essential (primary) hypertension | CPT/HCPCS: 80061; 80076 ==

== ENCOUNTER 2025-01-27 09:29 | Outpatient (CLI) | payer MEDICARE, SELFPAY | END 2025-01-27 09:30 | disposition home or self-care (01) | LOC: NFLDREF 01-31 03:26 | PROVIDERS: PCP Family Medicine; Referring Provider Family Medicine; Visit Provider Family Medicine | DX: I10 Essential (primary) hypertension (principal); E78.00 Pure hypercholesterolemia, unspecified | CPT/HCPCS: 80053; 80061 ==